=== PATIENT | female | born 1990 | race Caucasian/White ===

== ENCOUNTER → 2021-03-21 10:31 | Outpatient (CLI) | payer BC, SELFPAY ==
--- NOTE | ~2021-03-21 | MR_ITS ---
EXAMINATION: MR shoulder LT w con DATE: 03/21/2021 12:06 INDICATION: Left shoulder pain. Trauma. TECHNIQUE: Magnetic resonance imaging (MRI) of the left shoulder was performed without intravenous co ntrast after intra-articular injection of contrast (MR arthrogram). Sequences included axial T1-weigh jacqueline FS FSE and T2-weighted FS FSE, coronal-oblique T1-weighted FS FSE and T2-weighted FS FSE, sagitta l-oblique T1-weighted FSE and T2-weighed FS FSE, and ABER T1-weighted FS FSE. COMPARISON: None. FINDINGS: Coracoacromial arch: The acromion undersurface is curved in morphology (type II). Acromioclavicular joint is normal. There is a physiologic volume of fluid in subacromial/subdeltoid bursa. Rotator cuff: There is mild supraspinatus and infraspinatus tendinopathy. Teres minor tendon is normal. Subscapular is tendon is normal. There is no asymmetric fatty atrophy of the rotator cuff muscle bellies. Biceps tendon and glenoid labrum: Biceps tendon is in bicipital groove. Intra-articular biceps tendon is normal. The glenoid labrum is normal. Fluid: The glenohumeral joint is well distended by contrast. Bones/cartilage: Glenoid cartilage is normal. Humeral head cartilage is normal. IMPRESSION: 1. Mild rotator cuff tendinopathy. No tear. Reviewed, dictated and finalized at location A.
--- NOTE | ~2021-03-21 | XR_ITS ---
EXAMINATION: XR fl inj shoulder LT - MR/CT DATE: 03/21/2021 11:45 INDICATION: Left shoulder pain. No prior dislocation or surgery. TECHNIQUE: A time-out was performed to verify the patient's name, date of , and procedure to b e performed. The procedure including the risks, benefits, and alternatives was discussed with the pat ient. Risks discussed included bleeding and infection. The patient understood the risks and agreed to proceed. The skin overlying the left glenohumeral joint was prepped and draped in usual sterile fash ion. Anesthetic was administered with 1% lidocaine subcutaneously. A 22 G needle was advanced under fluoroscopic guidance into the joint. Subsequently, injectate consisting of 12 mL of 1:200 Multihan ce, 1:4 1% lidocaine, and 1:4 Omnipaque 240 was instilled. The needle was removed and the entry site was cleaned and dressed. There were no immediate complications. Fluoroscopy exposure time was 0.0 m inutes. The total number of images was 3. FINDINGS: Real-time fluoroscopy demonstrates the needle and contrast in the left glenohumeral joint. IMPRESSION: 1. Successful left glenohumeral joint injection of contrast for subsequent MR arthrography. Reviewed, dictated and finalized at location A. IMPRESSION: 1. Successful left glenohumeral joint injection of contrast for subsequent MR a rthrography.
== END ==
PROVIDERS: PCP Internal Medicine; Visit Provider Orthopaedic Surgery
DX: M25.512 Pain in left shoulder (principal); M75.82 Other shoulder lesions, left shoulder
CPT/HCPCS: 23350; 73222; A9577; Q9966